=== PATIENT | male | born 1995 | race Two or more races ===

== ENCOUNTER 2017-09-09 05:41 | Emergency (ER) | payer SELFPAY ==
[~2017-09-09] VITALS: Ht 185.4 cm; Wt 81.0 kg
[2017-09-09 07:25] VITALS: BP 118/75
[2017-09-09] MEDS ORDERED: BACITRACIN ZINC OINT UDPKT TOP ONE (08:00)
== END 2017-09-09 09:34 | disposition home or self-care (01) ==
LOC: ER 05:41
DX: S61.511A Laceration without foreign body of right wrist, initial encounter (principal); W22.8XXA Striking against or struck by other objects, initial encounter; Y93.02 Activity, running; Y92.89 Other specified places as the place of occurrence of the external cause
CPT/HCPCS: 99283

== ENCOUNTER 2019-01-22 01:51 | Emergency (ER) | payer OTHER ==
[~2019-01-22] VITALS: Ht 190.5 cm; Wt 87.0 kg
[2019-01-22] MEDS ORDERED: VANCOMYCIN 1 G PREMIX 200 ML IV SCH (03:30)
[2019-01-22 03:49] LABS: CHLORIDE 108 mEq/L (98-107)
[2019-01-22 03:57] LABS: BASOPHILS % 0.7 % (0.0-2.0); EOSINOPHILS % 2.2 % (0.0-5.0); HEMATOCRIT. 37.9 % (42.0-52.0); LYMPHOCYTES % 20.3 % (20.0-50.0); MEAN CORPUSCULAR HEMOGLOBIN 31.5 pg (28.0-32.0); MEAN CORPUSCULAR VOLUME 91.5 fL (80.0-94.0); MEAN PLATELET VOLUME 7.8 fl (7.4-10.4); MONOCYTES % 7.7 % (2.0-8.0); NEUTROPHILS % 69.1 % (40.0-76.0); PLATELET 270 x1000/uL (130-400); RED BLOOD CELL COUNT 4.14 mill/uL (4.7-6.1)
[2019-01-22 09:56] VITALS: BP 102/85
== END 2019-01-22 10:56 | disposition short-term general hospital (02) ==
LOC: ER 01:51
DX: S62.611B Displaced fracture of proximal phalanx of left index finger, initial encounter for open fracture (principal); S62.631B Displaced fracture of distal phalanx of left index finger, initial encounter for open fracture; L03.012 Cellulitis of left finger; W27.0XXA Contact with workbench tool, initial encounter; Y93.89 Activity, other specified; Y92.89 Other specified places as the place of occurrence of the external cause; F17.210 Nicotine dependence, cigarettes, uncomplicated
CPT/HCPCS: 36415; 73130; 80053; 83605; 85025; 96365; 99285; J3370